=== PATIENT | female | born 1980 | race Caucasian/White ===

== ENCOUNTER 2017-11-05 20:55 | Observation (INO) | payer OTHER ==
[~2017-11-05] VITALS: Ht 157.5 cm; Wt 60.5 kg
[~2017-11-05 20:55] MED LIST: AMOX500T PO; BACT800T5 PO; CLIN150C14 PO
[2017-11-05 21:44] VITALS: BP 100/61; PULSE 87; RESP 16; TEMP 98; O2SAT 98
[2017-11-05] MEDS ORDERED: ALPRAZolam 0.25 MG TAB PO PRN (22:15)
[2017-11-05 23:17] VITALS: BP 107/56; PULSE 72; RESP 16; TEMP 98.2; O2SAT 97
[2017-11-06] MEDS: IBUPROFEN 400 MG TAB PO PRN ×2 (02:31→09:07)
[2017-11-06 03:37] VITALS: PULSE 65
[2017-11-06 04:01] VITALS: BP 103/59; PULSE 64; RESP 20; TEMP 97.6; O2SAT 97
--- NOTE | 2017-11-06 10:33 | HHI.DCPOC ---
Discharge Care Plan Diagnosis: (1) Chest pain (2) Tobacco abuse Goals to Promote Your Health * To prevent worsening of your condition and complications * To maintain your health at the optimal level Directions to Meet Your Goals Take your medications as prescribed Follow your dietary instruction Follow activity as directed Keep your appointments as scheduled Take your immunizations and boosters as scheduled If your symptoms worsen call your PCP, if no PCP go to Urgent Care Center or Emergency Room Smoking is Dangerous to Your Health. Avoid second hand smoke Call the 24-hour hour crisis hotline for domestic abuse at Neeraj Cruz Nov 06, 2017 10:33
--- NOTE | 2017-11-06 11:54 | HHI.HP ---
HPI Primary Care Physician No Primary Care Physician Chief Complaint Chest pain History of Present Illness This is a 37-year-old female that presents to ED after being transported via [facility] from [place] with a complaint of palpitations and chest pain. States she has dealt with palpitations since age 15. Describes it as her heart beating forceful but not rapidly. She has had Holter monitors that really not shown much in the past. Over the past week she has had the palpitations as well as a sharp discomfort in her chest intermittently. The discomfort lasts a split second but afterwards the area is sore to touch. That soreness can last for an hour or so. She has had some associated shortness of breath but no nausea or diaphoresis. Denies . Denies recent illness. Denies fevers or chills cannot recall prior stress test. Review of Systems General: Patient denies fevers, chills recent, and recent travel HEENT: Patient denies headache, sore throat, difficulty swallowing. Cardiovascular: Has the chest discomfort as mentioned above. Complains of palpitations and describes them as her heart beating forcefully. Denies sensation of heart beating rapidly or irregularly. No syncope. Denies diaphoresis. Respiratory: Mild shortness of breath. Denies inspirational chest discomfort. Denies coughing wheezing or hemoptysis. GI: Patient denies nausea, vomiting, diarrhea, abdominal pain, bloody stools. Musculoskeletal: Patient denies joint pain or edema. Denies calf pain or edema. Neurovascular: Patient denies numbness, tingling, weakness in extremities. Denies headache. Endocrine: Denies polyuria and polydipsia. Hematologic: Denies easy bruising. Skin: Denies rash or itching. Past Family Social History Allergies: Coded Allergies: tramadol (Verified Allergy, Severe, 11/05/17) SEIZURES Past Medical History Seizure disorder which she stated her last seizure was more than a year and a half ago. Bipolar disorder. Has had mastoiditis in the past and recently being treated for right ear infection. Denies hypertension, hyperlipidemia, diabetes, and CAD. Past Surgical History She has had multiple surgeries secondary to cleft palate. Reported Medications Reported Meds & Active Scripts Active Reported Clindamycin (Clindamycin HCl) 150 Mg Cap Unknown Dose PO TID Amoxicillin 500 Mg Tab Unknown Dose PO TID Active Ordered Medications Current Medications Medications (Trade) Dose Ordered Sig/Tracy Route Start Time Stop Time Status Last Admin (Motrin) 400 mg Q6H PRN PO 11/05/17 22:15 11/06/17 09:07 (Xanax) 0.25 mg Q6H PRN PO 11/05/17 22:15 11/05/17 23:03 Family History Denies family history of CAD. Social History Daily for about 20 years. She has on average a couple beers per month. 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 Physical Exam Vital Signs Vital Signs Date Time Temp Pulse Resp B/P (MAP) Pulse Ox O2 Delivery O2 Flow Rate FiO2 11/06/17 04:01 97.6 64 20 103/59 (74) 97 11/06/17 03:37 65 11/05/17 23:17 98.2 72 16 107/56 (73) 97 11/05/17 21:44 98.0 87 16 100/61 (74) 98 Physical Exam GENERAL: This is a well-nourished, well-developed patient, in no apparent distress. Patient speaks in clear complete sentences. Patient is pleasant. HEENT: Head is atraumatic and normocephalic. Neck is supple without lymphadenopathy and trachea is midline. No JVD or carotid bruits. CARDIOVASCULAR: Regular rate and rhythm without murmurs, gallops, or rubs. RESPIRATORY: Clear to auscultation. Breath sounds equal bilaterally. No wheezes , rales, or rhonchi. Chest wall is nontender. No use of accessory muscles. GASTROINTESTINAL: Abdomen is nontender, nondistended. Abdomen soft. No obvious pulsatile mass or bruit. No CVA tenderness. Strong femoral pulses bilaterally. Normal bowel sounds in all quadrants. MUSCULOSKELETAL: Patient is moving upper and lower extremities freely. No calf tenderness or edema, no Homans sign. Strong pulses in upper and lower extremities. NEUROLOGICAL: Patient is alert and oriented. Cranial nerves 2-12 are grossly intact. No focal deficits and speech is clear. SKIN: No rash and turgor is normal. Laboratory Laboratory Tests Test 11/05/17 22:50 Troponin I LESS THAN 0.02 Course EKGs are sinus rhythm without significant ST segment depressions or elevations. Caprini VTE Risk Assessment Caprini VTE Risk Assessment: No/Low Risk (score <= 1) Caprini Risk Assessment Model Point Value = 1 Point Value = 2 Point Value = 3 Point Value = 5 Age 41-60 Minor surgery BMI > 25 kg/m2 Swollen legs Varicose veins or History of unexplained or recurrent spontaneous Oral contraceptives or hormone replacement Sepsis (< 1 month) Serious lung disease, including pneumonia (< 1 month) Abnormal pulmonary function Acute myocardial infarction Congestive heart failure (< 1 month) History of inflammatory bowel disease Medical patient at bed rest Age 61-74 Arthroscopic surgery Major open surgery (> 45 min) Laparoscopic surgery (> 45 min) Malignancy Confined to bed (> 72 hours) Immobilizing plaster cast Central venous access Age >= 75 History of VTE Family history of VTE Factor V Leiden Prothrombin [id number] Lupus anticoagulant Anticardiolipin antibodies Elevated serum homocysteine Heparin-induced thrombocytopenia Other congenital or acquired thrombophilia Stroke (< 1 month) Elective arthroplasty Hip, pelvis, or leg fracture Acute spinal cord injury (< 1 month) Prophylaxis Regimen Total Risk Factor Score Risk Level Prophylaxis Regimen 0-1 Low Early ambulation 2 Moderate Order ONE of the following: *Sequential Compression Device (SCD) *Heparin 5000 units SQ BID 3-4 Higher Order ONE of the following medications: *Heparin 5000 units SQ TID *Enoxaparin/Lovenox 40 mg SQ daily (WT < 150 kg, CrCl > 30 mL/min) *Enoxaparin/Lovenox 30 mg SQ daily (WT < 150 kg, CrCl > 10-29 mL/min) *Enoxaparin/Lovenox 30 mg SQ BID (WT < 150 kg, CrCl > 30 mL/min) AND/OR *Sequential Compression Device (SCD) 5 or more Highest Order ONE of the following medications: *Heparin 5000 units SQ TID (Preferred with Epidurals) *Enoxaparin/Lovenox 40 mg SQ daily (WT < 150 kg, CrCl > 30 mL/min) *Enoxaparin/Lovenox 30 mg SQ daily (WT < 150 kg, CrCl > 10-29 mL/min) *Enoxaparin/Lovenox 30 mg SQ BID (WT < 150 kg, CrCl > 30 mL/min) AND *Sequential Compression Device (SCD) Assessment and Plan Assessment and Plan * Atypical chest pain: Patient has had serial cardiac enzymes and EKGs were ruling out purposes. She has been seen by Dr. Boone of cardiology in the chest pain center and will have a Giles protocol ETT. She will be discharged home if her stress test is nonischemic with instructions to follow-up with PCP. Return to ED for interval issues. * Tobacco abuse: Patient has been counseled on importance of smoking cessation. Neeraj Cruz Nov 06, 2017 11:54
--- NOTE | 2017-11-06 16:00 | TR ---
Date Performed: 11/06/2017 Time Performed: 09:17:49 DOCTOR: Milly Boone DRUG LIST: CLINICAL HISTORY: REASON FOR TEST: REASON FOR ENDING: OBSERVATION: CONCLUSION: FANY PROTOCOL. NO CP. TEST STOPPED AFTER EXCEEDING GOAL HR SECONDARY TO SOB AND LEG FATIGUE.Maximum ZU=755 % Max HR Achieved=95.0% Maximum ZH=184/60 Total Exercise Time=7:01 COMMENTS: No ischemia
--- NOTE | 2017-11-06 16:03 | EKG ---
Date Performed: 11/05/2017 Time Performed: 22:02:57 PTAGE: 37 years EKG: Sinus rhythm POSSIBLE RIGHT VENTRICULAR CONDUCTION DELAY BORDERLINE ECG Since PREVIOUS TRACING , no significant change noted PREVIOUS TRACIN11/05/2017 19.16 DOCTOR: Milly Boone Interpretating Date/Time 11/06/2017 16:02:05
== END 2017-11-06 12:13 | disposition home or self-care (01) ==
LOC: NEDDLT 20:55 → NEPGCP 21:00
PROVIDERS: ADMIT Internal Medicine Cardiovascular Disease; ATTEND Internal Medicine Cardiovascular Disease
DX: R07.9 Chest pain, unspecified (principal); R00.0 Tachycardia, unspecified; R06.02 Shortness of breath; R94.31 Abnormal electrocardiogram [ECG] [EKG]; F31.9 Bipolar disorder, unspecified; G40.909 Epilepsy, unspecified, not intractable, without status epilepticus; F11.11 Opioid abuse, in remission; Z72.0 Tobacco use; Z87.730 Personal history of (corrected) cleft lip and palate
CPT/HCPCS: 71045; 80053; 82550; 82552; 83880; 84484; 84702; 85025; 85379; 85610; 85730; 93005; 93017; 99285; G0378